=== PATIENT | female | born 1970 | race American Indian/Alaskan Native ===

== ENCOUNTER 2018-08-06 09:41 | Inpatient (IN) | payer MEDICAID ==
[2018-08-02 13:47] LABS: Basophils # (Auto) 0.1 K/mm3 (0.0-0.1); Basophils % (Auto) 1.2 % (0.0-1.8); Eosinophils # (Auto) 0.2 K/mm3 (0.0-0.4); Eosinophils % (Auto) 2.6 % (0.0-4.3); Hematocrit 38.3 % (30.3-42.9); Hemoglobin 12.8 gm/dl (10.1-14.3); Lymphocytes # (Auto) 3.9 K/mm3 (1.2-5.4); Lymphocytes % (Auto) 44.8 % (13.4-35.0); Mean Corpuscular HGB Conc 34 % (30-34); Mean Corpuscular Volume 95 fl (79-97); Monocytes # (Auto) 0.4 K/mm3 (0.0-0.8); Monocytes % (Auto) 4.8 % (0.0-7.3); Platelet Count 377 K/mm3 (140-440); Red Blood Count 4.05 M/mm3 (3.65-5.03); Red Cell Distribution Width 13.5 % (13.2-15.2)
[2018-08-02 13:57] LABS: INR 0.95 (0.87-1.13)
[2018-08-02 13:58] LABS: Partial Thromboplastin Time 26.5 Sec. (24.2-36.6)
[2018-08-02 14:04] LABS: Alanine Aminotransferase 20 units/L (7-56); Albumin 4.2 g/dL (3.9-5); BUN/Creatinine Ratio 17; Blood Urea Nitrogen 10 mg/dL (7-17); Calcium 9.4 mg/dL (8.4-10.2); Hemolysis Index 39
--- NOTE | 2018-08-02 16:11 | Anesthesia Consultation ---
Anesthesia Consult and Med Hx Date of service: 08/02/18 - Airway ROM Head & Neck: Adequate Mental/Hyoid Distance: Adequate Mallampati Class: Class III Intubation Access Assessment: Possibly Difficult - Pulmonary Exam CTA: Yes - Cardiac Exam Cardiac Exam: RRR - Pre-Operative Health Status ASA Pre-Surgery Classification: ASA3 Proposed Anesthetic Plan: General (SEVEN, COPD) Nerve Block: Adductor Canal - Pulmonary Hx Smoking: Yes (Former) Hx Asthma: Yes (Last neb beginnning 06/2018) COPD: Yes Hx Sleep Apnea: Yes - Cardiovascular System Hx Hypertension: Yes Hx Coronary Artery Disease: Yes Hx Peripheral Vascular Disease: Yes (Per pt) - Central Nervous System Hx Psychiatric Problems: Yes - Other Systems Hx Alcohol Use: Yes (Occas) Hx Cancer: No
[~2018-08-06 09:41] MED LIST: ANCEF/STERILE WATER 2 GM/20 ML IV NR
[2018-08-06] MEDS: NACL 0.9% 1000 ML 1,000 ML IV SCH (10:50)
[2018-08-06] MEDS ORDERED: NACL 0.9% 1000 ML 1,000 ML ONE (10:54)
[2018-08-06] MEDS ORDERED: ZOFRAN IV PRN ×2 (10:56→18:19)
--- NOTE | 2018-08-06 10:56 | Anesthesia Day of Surgery ---
Anesthesia Day of Surgery - Day of Surgery Patient Examined: Yes Patient H&P Reviewed: Yes Patient is NPO: Yes
[2018-08-06] MEDS ORDERED: LACTATED RINGERS 1,000 ML IV SCH (11:00)
[2018-08-06] MEDS ORDERED: NEURONTIN ONE (11:22)
[2018-08-06] MEDS ORDERED: SUBLIMAZE ONE ×2 (11:38→15:29)
[2018-08-06] MEDS ORDERED: XYLOCAINE 1% 20 mL ONE (11:39)
[2018-08-06] MEDS ORDERED: VERSED ONE (11:39)
[2018-08-06] MEDS ORDERED: TRANEXAMIC ACID ONE (12:00)
[2018-08-06] MEDS ORDERED: TORADOL ONE (12:00)
[2018-08-06] MEDS ORDERED: MARCAINE-EPI 0.5%-1:200,000 INFILTRATI ONE ×2 (12:00→17:45)
[2018-08-06] MEDS ORDERED: ANCEF/STERILE WATER 2 GM/20 ML IV NR (12:00)
[2018-08-06] MEDS ORDERED: NEURONTIN PO NR (12:00)
[2018-08-06] MEDS ORDERED: NACL 0.9% 100 ML ONE (12:01)
[2018-08-06] MEDS ORDERED: MORPHINE ONE ×2 (12:01→16:58)
[2018-08-06] MEDS ORDERED: NACL ONE (12:02)
[2018-08-06] MEDS ORDERED: DIPRIVAN 10 MG/ML IV ONE (15:29)
[2018-08-06] MEDS ORDERED: XYLOCAINE MPF 2% ONE (15:33)
[2018-08-06] MEDS ORDERED: QUELICIN ONE (15:56)
[2018-08-06] MEDS ORDERED: ZEMURON IV ONE (16:04)
[2018-08-06] MEDS ORDERED: DECADRON ONE (16:14)
[2018-08-06] MEDS ORDERED: ZOFRAN ONE (16:15)
[2018-08-06] MEDS ORDERED: DILAUDID ONE (17:02)
[2018-08-06] MEDS ORDERED: MORPHINE IM ONE (17:45)
[2018-08-06] MEDS ORDERED: TORADOL IV ONE (17:45)
[2018-08-06] MEDS ORDERED: NACL 0.9% IV ONE (17:45)
[2018-08-06] MEDS ORDERED: AMBIEN PO PRN (18:19)
[2018-08-06] MEDS ORDERED: IBUPROFEN PO PRN (18:19)
[2018-08-06] MEDS: DILAUDID IV PRN (18:25)
--- NOTE | 2018-08-06 18:34 | Procedure Note ---
Date of procedure: 08/06/18 Pre-op diagnosis: osteoarthritis right knee Post-op diagnosis: same Procedure: Right total knee arthroplasty Procedure The patient was brought to the or after the femoral nerve block and preoperative holding, he was placed in the or table in supine position following induction with Mac anesthesia the patient's right lower extremity was prepped and draped in the usual sterile manner. A timeout procedure was done to identify the patient and the correct operative site The leg was exsanguinated followed by insufflation of the pneumatic tourniquet to 300 mmHg. The midline incision was made centered over the patella this is taken down distally towards due to multiple medical incision was carried down sharply through skin and subcutaneous A sub-brow cyst approach was used after elevating the vastus off the distal femur. The knee was flexed to 90 following O's examination revealed typical where along the medial lateral compartments with peripheral osteophytes and bare bone in some places followinga large drill bit was used to enter the distal f emoral canal following this the distal femoral cutting was applied approximately 8-9 mm of bone was resected next the attention was turned to the proximal tibia using the external alignment again 8-9 mL of proximal tibia was resected care was taken to protect the medial and lateral collateral ligaments the cruciate ligaments were sacrificed longus sizing of the femoral component was performed a 4 femoral component was selected this was followed by application of the 4 in 1 cutting block care was taken to resect the anterior posterior as well as solution at this at this point in time the knee was sized A flexion and extension Of 10 mm was selected this was followed by application of the trial components the knee was then taken to or range of motion and was found to be stable following this fixation holes were applied to both the distal femur and proximal tibia care was taken to remove the medial lateral menisci as well as any excess bone and soft tissue debris the knee was then copiously irrigated using pulse lavage The bone cement was mixed the bone bleeding surfaces were wiped dry using sterile gauze for menisci tibial component was inserted using the cement technique the 11 mm polyethylene spacer was applied and secured this was followed by placement of the femoral component again excess cement was removed the knee was then held in flexion ostomy extension until the cement gandhi rdened following hardening of cement again a second look was performed and the residual soft tissue N cement debris were removed at this time the knee was then taken through a range of motion and was found to be stable next the Jaguar's incision was repaired using #1 Vicryl in interrupted [id number] suture pattern the subcutaneous and skin were closed in a routine manner. Dressings were applied the patient tolerated the procedure the retinal complications he was then taken to postanesthesia recovery Anesthesia: MAC, regional Surgeon: SUZANNA QUEVEDO (Maryana Peralta, 1st nutrition assistant) Estimated blood loss: 50-100ml Pathology: none Specimen disposition: discarded Condition: stable Disposition: PACU
[2018-08-06] MEDS ORDERED: SODIUM CHLORIDE FLUSH SYRINGE 10 ML IV SCH (19:00)
[2018-08-06] MEDS: ANCEF/NS 1 GM/50 ML 1 GM/50 ML BAG IV SCH (21:43)
[2018-08-06] MEDS: COLACE PO SCH (21:43)
[2018-08-06] MEDS: PERCOCET 5/325 PO PRN (21:44)
[2018-08-07] MEDS: ANCEF/NS 1 GM/50 ML 1 GM/50 ML BAG IV SCH (04:52)
[2018-08-07] MEDS: NACL 0.9% 1000 ML 1,000 ML IV SCH (04:52)
[2018-08-07] MEDS: PERCOCET 5/325 PO PRN ×2 (06:13→14:49)
[2018-08-07 07:24] LABS: Hematocrit 35.5 % (30.3-42.9); Hemoglobin 11.8 gm/dl (10.1-14.3)
[2018-08-07] MEDS: MORPHINE IV PRN ×3 (10:53→21:36)
[2018-08-07] MEDS: COLACE PO SCH ×2 (10:53→21:51)
[2018-08-07] MEDS: LOVENOX SUB-Q SCH (10:54)
[2018-08-07] MEDS: HABITROL TD SCH (12:07)
--- NOTE | 2018-08-07 12:28 | Consultation ---
History of Present Illness - Reason for Consult Consult date: 08/07/18 Medical management Requesting physician: SUZANNA QUEVEDO - History of Present Illness This is 48 y/o AAF with h/o CHF, HTN, HLD, COPD, anxiety and depression was admitted yesterday for elective Right knee arthoplasty. She had total Right knee arthoplasty yesterday, tolerated well. Hospitalist service consulted for medical Mx. patient denies any chest pain or SOB, but c/o cough, no fever. Endorses right knee pain. Review of System: Constitutional: no fever, no chills, no weight loss Ears, eyes, nose, mouth and throat: no nasal congestion, no nasal discharge, no sinus pressure, no vision change, no red eye. Neck: No neck pain or rigidity. Cardiovascular: No chest pain, no orthopnea, no palpitations, no leg swelling Respiratory: No shortness of breath, no cough, no congestion, no wheezing Gastrointestinal: no abdominal pain, no nausea, no vomiting Genitourinary : no dysuria, no hematuria Musculoskeletal: + Right knee joint pain Integumentary: no rash, no pruritis Neurological: no parathesias, no numbness, no tingling Endocrine: no cold or heat intolerance, no polyuria or polydipsia Hematologic/Lymphatic: no easy bruising, no easy bleeding, no gland swelling Allergic/Immunologic: no urticaria, no angioedema. Past History Past Medical History: GERD, heart failure, hypertension, hyperlipidemia, other (anxiety and depression) Past Surgical History: cataract removal, Other (tubal ligation b/l, lumpectomy from left breast) Social history: denies: smoking, alcohol abuse, IV drug use Family history: hypertension Medications and Allergies Allergies Allergy/AdvReac Type Severity Reaction Status Date / Time lisinopril Allergy Angioedema Verified 07/28/18 13:07 Home Medications Medication Instructions Recorded Confirmed Last Taken Type Gabapentin [Neurontin] 600 mg PO Q8H 06/27/18 08/06/18 08/05/18 09:00 History Loratadine 10 mg PO DAILY 06/27/18 08/06/18 08/05/18 09:00 History OLANZapine [Zyprexa Zydis] 15 mg PO QHS 06/27/18 08/06/18 08/05/18 21:00 History Potassium Chloride [Klor-Con M20] 20 meq PO DAILY 06/27/18 08/06/18 08/05/18 09:00 History AtorvaSTATin [Lipitor] 40 mg PO QHS #30 tablet 06/30/18 08/06/18 08/05/18 09:00 Rx Metoprolol Succinate [Toprol Xl] 25 mg PO BID #60 tab.er.24h 06/30/18 08/06/18 08/06/18 05:00 Rx Montelukast [Singulair] 10 mg PO QPM #30 tablet 06/30/18 08/06/18 08/05/18 09:00 Rx DULoxetine [Cymbalta] 60 mg PO DAILY 08/02/18 08/02/18 Unknown History Furosemide [Lasix] 60 mg PO DAILY 08/02/18 08/02/18 Unknown History hydrOXYzine pamoate [hydrOXYzine 100 mg PO DAILY PRN 08/02/18 08/06/18 08/05/18 09:00 History Pamoate] traMADol [Ultram] 50 mg PO Q12H PRN 08/02/18 08/06/18 08/04/18 09:00 History Lansoprazole [Heartburn Treatment 15 mg PO QDAY 08/07/18 08/07/18 Unknown History 24 Hour] Active Meds: Active Medications Docusate Sodium (Colace) 100 mg PO BID [facility] Last Admin: 08/07/18 10:53 Dose: 100 mg Documented by: Enoxaparin Sodium (Lovenox) 40 mg SUB-Q QDAY [facility] Last Admin: 08/07/18 10:54 Dose: 40 mg Documented by: Hydromorphone HCl (Dilaudid) 0.5 mg IV Q10MIN PRN PRN Reason: Pain , Severe (7-10) Last Admin: 08/06/18 18:25 Dose: 0.5 mg Documented by: Lactated Ringer's (Lactated Ringers) 1,000 mls @ 100 mls/hr IV DIRECT [facility] Sodium Chloride (Nacl 0.9% 1000 Ml) 1,000 mls @ 75 mls/hr IV DIRECT [facility] Last Admin: 08/07/18 04:52 Dose: 75 mls/hr Documented by: Ibuprofen (Motrin) 600 mg PO Q6H PRN PRN Reason: Pain, Mild (1-3) Morphine Sulfate (Morphine) 4 mg IV Q4H PRN PRN Reason: Pain , Severe (7-10) Last Admin: 08/07/18 10:53 Dose: 4 mg Documented by: Nicotine (Habitrol) 21 mg TD QDAY [facility] Last Admin: 08/07/18 12:07 Dose: 21 mg Documented by: Ondansetron HCl (Zofran) 4 mg IV ONCE PRN PRN Reason: Nausea And Vomiting Ondansetron HCl (Zofran) 4 mg IV Q8H PRN PRN Reason: Nausea And Vomiting Oxycodone/Acetaminophen (Percocet 5/325) 1 tab PO Q6H PRN PRN Reason: Pain, Moderate (4-6) Last Admin: 08/07/18 06:13 Dose: 1 tab Documented by: Sodium Chloride (Sodium Chloride Flush Syringe 10 Ml) 10 ml IV PRN [facility] Zolpidem Tartrate (Ambien) 5 mg PO QHS PRN PRN Reason: Sleep Last Admin: 08/07/18 00:35 Dose: 5 mg Documented by: Exam - Constitutional Vitals: Temp Pulse Resp BP Pulse Ox 98.0 F 67 16 128/77 100 08/07/18 07:31 08/07/18 07:31 08/07/18 11:23 08/07/18 07:31 08/07/18 07:31 General appearance: Present: no acute distress, obese - EENT Eyes: Present: PERRL ENT: hearing intact, clear oral mucosa - Neck Neck: Present: supple, normal ROM - Respiratory Respiratory effort: normal Respiratory: bilateral: CTA - Cardiovascular Heart Sounds: Present: S1 & S2. Absent: rub, click - Extremities Extremities: pulses symmetrical, No edema Peripheral Pulses: within normal limits - Abdominal General gastrointestinal: Present: soft, non-tender, non-distended, normal bowel sounds - Integumentary Integumentary: Present: clear, warm, dry - Musculoskeletal Musculoskeletal: other (right knee with dressing) - Psychiatric Psychiatric: appropriate mood/affect, intact judgment & insight - Neurologic Neurologic: CNII-XII intact, moves all extremities Results - Labs CBC & Chem 7: 08/07/18 06:15 08/02/18 13:40 Assessment and Plan s/p Right knee arthoplasty, POD #1 CHF, compensated, Ef unknown, likely systolic HTN/HLD Anxiety/depression Osteoarthritis GERD - cont post op care by ortho, PT/OT - will resume home meds, stiop iv fluid, pain Mx - dvt Px, thx for the consult - will follow along with you
--- NOTE | 2018-08-07 14:45 | XRay Report ---
FINAL REPORT PROCEDURE: XR KNEE 1-2V RT TECHNIQUE: Right knee, AP and lateral views HISTORY: post op evaluation COMPARISON: 07/07/2018 FINDINGS: There has been right knee arthroplasty. Hardware is in the expected position. No fracture of the vanessa ve bone or joint dislocation is seen. Soft tissue air is present. IMPRESSION: Status post right knee arthroplasty
[2018-08-07] MEDS ORDERED: ULTRAM PO PRN (15:20)
[2018-08-07] MEDS ORDERED: VISTARIL PO PRN (15:20)
[2018-08-07] MEDS ORDERED: NON-FORMULARY (Lansoprazole [Heartburn Treatment 24 Hour] 15 MG) PO SCH (15:30)
[2018-08-07] MEDS ORDERED: NON-FORMULARY (Gabapentin [Neurontin] 600 MG) PO SCH (15:30)
[2018-08-07] MEDS: SINGULAIR PO SCH (17:04)
[2018-08-07] MEDS: LASIX PO SCH (17:04)
[2018-08-07] MEDS: CYMBALTA PO SCH (17:04)
[2018-08-07] MEDS: CLARITIN PO SCH (17:04)
[2018-08-07] MEDS: NEURONTIN PO SCH (21:51)
[2018-08-07] MEDS: TOPROL XL PO SCH (21:52)
[2018-08-07] MEDS ORDERED: OLANZAPINE 15 MG PO SCH (22:00)
[2018-08-07] MEDS: PROTONIX PO SCH (22:46)
[2018-08-08] MEDS: MORPHINE IV PRN ×2 (04:46→21:34)
[2018-08-08] MEDS ORDERED: APRESOLINE IV PRN (05:41)
[2018-08-08] MEDS: NEURONTIN PO SCH ×3 (06:34→23:20)
[2018-08-08] MEDS: TOPROL XL PO SCH ×2 (09:58→23:25)
[2018-08-08] MEDS: COLACE PO SCH ×2 (09:58→23:20)
[2018-08-08] MEDS: CLARITIN PO SCH (10:00)
[2018-08-08] MEDS: K-DUR PO SCH (10:00)
[2018-08-08] MEDS: LASIX PO SCH (10:00)
[2018-08-08] MEDS ORDERED: PROTONIX PO SCH (10:00)
[2018-08-08] MEDS: PROTONIX PO SCH (10:00)
[2018-08-08] MEDS: LOVENOX SUB-Q SCH (10:01)
[2018-08-08] MEDS: CYMBALTA PO SCH (10:01)
[2018-08-08] MEDS: HABITROL TD SCH (10:01)
[2018-08-08] MEDS: PERCOCET 5/325 PO PRN ×2 (10:13→23:32)
--- NOTE | 2018-08-08 12:43 | Progress Note ---
Assessment and Plan Status post right total knee replacement Doing well Continue physical therapy and observation Subjective Date of service: 08/08/18 Interval history: No major complaints noted therapist in the room today Objective Vital signs: Vital Signs - 12hr 08/08/18 08/08/18 04:57 04:58 Temperature 99.7 F H Pulse Rate 91 H 91 H Respiratory 20 Rate Blood Pressure 170/96 O2 Sat by Pulse 98 98 Oximetry Narrative Exam: Post op dressings intact no drainage noted, good capillary refill, negative Martha's - Labs CBC & BMP: 08/07/18 06:15 08/02/18 13:40
--- NOTE | 2018-08-08 15:12 | Progress Note ---
Assessment and Plan Acute respiratory failure, could be from postop atelectasis, expected - CXR, nebs ordered, placed on supplemental O2 s/p Right knee arthoplasty, POD #1 CHF, compensated, Ef unknown, likely systolic HTN/HLD Anxiety/depression Osteoarthritis GERD - cont post op care by ortho, PT/OT, ambulate - Resumed home meds, off iv fluid, pain Mx, incentive spirometry, CXR, nebs - dvt Px, thx for the consult - will follow along with you Brief history: This is 48 y/o AAF with h/o CHF, HTN, HLD, COPD, anxiety and depression was admitted for elective Right knee arthoplasty. She had total Right knee arthoplasty done on 08/06/18, tolerated well. Hospitalist service consulted for medical Mx. Developed respiratory distress on 08/08/18, likely from postop atelectasis. Subjective Date of service: 08/08/18 Interval history: Pt seen and examined noted hypoxic this am, placed on N/c c/o cough Objective - Exam Narrative Exam: General appearance: Present: no acute distress, obese - EENT Eyes: Present: PERRL ENT: hearing intact, clear oral mucosa - Neck Neck: Present: supple, normal ROM - Respiratory Respiratory effort: normal Respiratory: bilateral: CTA - Cardiovascular Heart Sounds: Present: S1 & S2. Absent: rub, click - Extremities Extremities: pulses symmetrical, No edema Peripheral Pulses: within normal limits - Abdominal General gastrointestinal: Present: soft, non-tender, non-distended, normal bowel sounds - Integumentary Integumentary: Present: clear, warm, dry - Musculoskeletal Musculoskeletal: other (right knee with dressing) - Psychiatric Psychiatric: appropriate mood/affect, intact judgment & insight - Neurologic Neurologic: CNII-XII intact, moves all extremities - Constitutional Vitals: Vital Signs - 12hr 08/08/18 08/08/18 08/08/18 04:57 04:58 10:00 Temperature 99.7 F H Pulse Rate 91 H 91 H Respiratory 20 Rate Blood Pressure 170/96 O2 Sat by Pulse 98 98 98 Oximetry - Labs CBC & Chem 7: 08/07/18 06:15 08/02/18 13:40
--- NOTE | 2018-08-08 16:53 | XRay Report ---
FINAL REPORT EXAM: XR CHEST 1V AP HISTORY: SOB TECHNIQUE: Frontal chest radiograph. PRIORS: 06/27/2018. FINDINGS: The cardiomediastinal silhouette is normal. No focal consolidation. Linear opacities are seen in the lung bases. No pleural effusion. No pneumothorax. No acute osseous abnormality. IMPRESSION: Mild bibasilar atelectasis versus scarring.
[2018-08-08] MEDS: SINGULAIR PO SCH (19:05)
[2018-08-08] MEDS: DUONEB *Not for PRN Use IH SCH (20:31)
[2018-08-09] MEDS: DUONEB *Not for PRN Use IH SCH ×4 (02:18→20:26)
[2018-08-09] MEDS: NEURONTIN PO SCH ×3 (06:28→21:25)
[2018-08-09] MEDS: CYMBALTA PO SCH (09:30)
[2018-08-09] MEDS: LASIX PO SCH (09:31)
[2018-08-09] MEDS: K-DUR PO SCH (09:31)
[2018-08-09] MEDS: PROTONIX PO SCH (09:31)
[2018-08-09] MEDS: CLARITIN PO SCH (09:31)
[2018-08-09] MEDS: COLACE PO SCH ×2 (09:32→21:24)
[2018-08-09] MEDS: LOVENOX SUB-Q SCH (09:32)
[2018-08-09] MEDS: HABITROL TD SCH (09:32)
[2018-08-09] MEDS ORDERED: FLONASE NS ONE (14:31)
[2018-08-09] MEDS: MORPHINE IV PRN (14:31)
--- NOTE | 2018-08-09 14:31 | Progress Note ---
Assessment and Plan Acute respiratory failure, could be from postop atelectasis, expected - CXR, nebs ordered, placed on supplemental O2 s/p total Right knee replacement, POD #3 CHF, compensated, Ef unknown, likely systolic HTN/HLD Anxiety/depression Osteoarthritis GERD - cont post op care by ortho, PT/OT, ambulate - Resumed home meds, off iv fluid, pain Mx, incentive spirometry, CXR, nebs - dvt Px, thx for the consult - will follow along with you Brief history: This is 48 y/o AAF with h/o CHF, HTN, HLD, COPD, anxiety and depression was admitted for elective Right knee replacement. She had total Right knee replacement done on 08/06/18, tolerated well. Hospitalist service consulted for medical Mx. Developed respiratory distress on 08/08/18, likely from postop atelectasis, CXR no infiltrates. Subjective Date of service: 08/09/18 Interval history: Pt seen and examined c/o cough, ambulated with PT today Objective - Exam Narrative Exam: General appearance: Present: no acute distress, obese - EENT Eyes: Present: PERRL ENT: hearing intact, clear oral mucosa - Neck Neck: Present: supple, normal ROM - Respiratory Respiratory effort: normal Respiratory: bilateral: CTA - Cardiovascular Heart Sounds: Present: S1 & S2. Absent: rub, click - Extremities Extremities: pulses symmetrical, No edema Peripheral Pulses: within normal limits - Abdominal General gastrointestinal: Present: soft, non-tender, non-distended, normal bowel sounds - Integumentary Integumentary: Present: clear, warm, dry - Musculoskeletal Musculoskeletal: other (right knee with dressing) - Psychiatric Psychiatric: appropriate mood/affect, intact judgment & insight - Neurologic Neurologic: CNII-XII intact, moves all extremities - Constitutional Vitals: Vital Signs - 12hr 08/09/18 08/09/18 08/09/18 02:33 05:25 07:18 Temperature 97.9 F 98.1 F Pulse Rate 70 72 Pulse Rate [ 76 Anterior Bilateral Throughout] Pulse Rate [ Throughout] Respiratory 18 16 Rate Respiratory 18 Rate [Anterior Bilateral Throughout] Respiratory Rate [ Throughout] Blood Pressure 121/74 112/68 O2 Sat by Pulse 99 99 Oximetry 08/09/18 08/09/18 08/09/18 07:46 08:01 11:28 Temperature 98.6 F Pulse Rate 94 H Pulse Rate [ 78 Anterior Bilateral Throughout] Pulse Rate [ 79 Throughout] Respiratory 20 Rate Respiratory 16 Rate [Anterior Bilateral Throughout] Respiratory 16 Rate [ Throughout] Blood Pressure 122/70 O2 Sat by Pulse 99 98 Oximetry - Labs CBC & Chem 7: 08/07/18 06:15 08/02/18 13:40
[2018-08-09] MEDS: TOPROL XL PO SCH (18:09)
[2018-08-09] MEDS: FLONASE NS SCH (18:15)
[2018-08-09] MEDS: PERCOCET 5/325 PO PRN (20:38)
[2018-08-09] MEDS: SINGULAIR PO SCH (21:27)
--- NOTE | 2018-08-09 21:28 | Progress Note ---
Assessment and Plan Status post right total knee replacement Continue physical therapy and observation hopefully discharged home soon Subjective Date of service: 08/09/18 Interval history: No complaints doing better overall Objective Vital signs: Vital Signs - 12hr 08/09/18 08/09/18 08/09/18 11:28 15:07 18:09 Temperature 98.6 F 102.2 F H Pulse Rate 94 H 99 H Pulse Rate [ Anterior Bilateral Throughout] Respiratory 20 20 Rate Respiratory Rate [Anterior Bilateral Throughout] Blood Pressure 122/70 150/87 150/87 O2 Sat by Pulse 98 99 Oximetry 08/09/18 08/09/18 08/09/18 19:53 20:28 20:29 Temperature 100.8 F H Pulse Rate 99 H Pulse Rate [ 98 H Anterior Bilateral Throughout] Respiratory 20 Rate Respiratory 20 Rate [Anterior Bilateral Throughout] Blood Pressure 140/92 O2 Sat by Pulse 98 99 Oximetry 08/09/18 20:38 Temperature Pulse Rate Pulse Rate [ Anterior Bilateral Throughout] Respiratory 17 Rate Respiratory Rate [Anterior Bilateral Throughout] Blood Pressure O2 Sat by Pulse Oximetry Narrative Exam: Postoperative dressings removed wound inspected no sign of infection with minimal drainage and incision intact - Labs CBC & BMP: 08/07/18 06:15 08/02/18 13:40
[2018-08-09] MEDS ORDERED: PROVENTIL IH PRN (21:43)
[2018-08-10] MEDS: DILAUDID IV PRN (04:45)
[2018-08-10] MEDS: TYLENOL PO PRN (04:46)
[2018-08-10] MEDS: NEURONTIN PO SCH ×3 (06:42→21:20)
[2018-08-10] MEDS: CYMBALTA PO SCH (09:10)
[2018-08-10] MEDS: PROTONIX PO SCH (09:11)
[2018-08-10] MEDS: HABITROL TD SCH (09:11)
[2018-08-10] MEDS: K-DUR PO SCH (09:11)
[2018-08-10] MEDS: CLARITIN PO SCH (09:11)
[2018-08-10] MEDS: COLACE PO SCH ×2 (09:12→21:20)
[2018-08-10] MEDS: LASIX PO SCH (09:12)
[2018-08-10] MEDS: LOVENOX SUB-Q SCH (09:12)
[2018-08-10] MEDS: FLONASE NS SCH (09:12)
[2018-08-10] MEDS: DUONEB *Not for PRN Use IH SCH ×3 (09:18→21:42)
[2018-08-10] MEDS: TOPROL XL PO SCH ×3 (09:42→21:20)
--- NOTE | 2018-08-10 11:11 | Progress Note ---
Assessment and Plan Assessment and plan: This is 48 y/o AAF with h/o CHF, HTN, HLD, COPD, anxiety and depression was admitted for elective Right knee replacement. She had total Right knee replacement done on 08/06/18, tolerated well. Hospitalist service consulted for medical Mx. Developed respiratory distress on 08/08/18, likely from postop atelectasis, CXR no infiltrates. --Acute respiratory failure, could be from postop atelectasis, expected CXR, nebs ordered, placed on supplemental O2 --s/p total Right knee replacement, POD #3 Continue postop care, physical therapy and occupational therapy Possible home PT upon discharge --CHF, compensated, Ef unknown, likely systolic Continue current management --HTN/HLD; stable --Anxiety/depression; continue current management --Osteoarthritis; supportive care --GERD; Protonix --DVT prophylaxis; Lovenox Discharge plan and case management Plan of care is reviewed with the patient and her nurse History Interval history: Patient seen and examined medical records reviewed Slightly better tolerating physical therapy Mild pain in the knee, Vital signs reviewed Hospitalist Physical - Constitutional Vitals: Temp Pulse Resp BP Pulse Ox 99.4 F 91 H 20 122/73 97 08/10/18 07:00 08/10/18 09:35 08/10/18 09:35 08/10/18 07:00 08/10/18 09:19 General appearance: Present: no acute distress, well-nourished, obese - EENT Eyes: Present: PERRL, EOM intact - Neck Neck: Present: supple, normal ROM - Respiratory Respiratory effort: normal Respiratory: bilateral: diminished, negative: rales, rhonchi, wheezing - Cardiovascular Rhythm: regular Heart Sounds: Present: S1 & S2 - Extremities Extremities: no ischemia, No edema, abnormal (postsurgical changes) - Abdominal General gastrointestinal: soft, non-tender, non-distended, normal bowel sounds - Integumentary Integumentary: Present: clear, warm - Psychiatric Psychiatric: appropriate mood/affect, cooperative - Neurologic Neurologic: CNII-XII intact, moves all extremities Results - Labs CBC & Chem 7: 08/07/18 06:15 08/02/18 13:40 Labs: Laboratory Last Values WBC 8.7 K/mm3 (4.5-11.0) 08/02/18 13:40 RBC 4.05 M/mm3 (3.65-5.03) 08/02/18 13:40 Hgb 11.8 gm/dl (10.1-14.3) 08/07/18 06:15 Hct 35.5 % (30.3-42.9) 08/07/18 06:15 MCV 95 fl (79-97) 08/02/18 13:40 MCH 32 pg (28-32) 08/02/18 13:40 MCHC 34 % (30-34) 08/02/18 13:40 RDW 13.5 % (13.2-15.2) 08/02/18 13:40 Plt Count 377 K/mm3 (140-440) 08/02/18 13:40 Lymph % (Auto) 44.8 % (13.4-35.0) H 08/02/18 13:40 [place] % (Auto) 4.8 % (0.0-7.3) 08/02/18 13:40 Eos % (Auto) 2.6 % (0.0-4.3) 08/02/18 13:40 Baso % (Auto) 1.2 % (0.0-1.8) 08/02/18 13:40 Lymph # 3.9 K/mm3 (1.2-5.4) 08/02/18 13:40 [place] # 0.4 K/mm3 (0.0-0.8) 08/02/18 13:40 Eos # 0.2 K/mm3 (0.0-0.4) 08/02/18 13:40 Baso # 0.1 K/mm3 (0.0-0.1) 08/02/18 13:40 Seg Neutrophils % 46.6 % (40.0-70.0) 08/02/18 13:40 Seg Neutrophils # 4.1 K/mm3 (1.8-7.7) 08/02/18 13:40 PT 13.1 Sec. (12.2-14.9) 08/02/18 13:40 INR 0.95 (0.87-1.13) 08/02/18 13:40 APTT 26.5 Sec. (24.2-36.6) 08/02/18 13:40 Sodium 140 mmol/L (137-145) 08/02/18 13:40 Potassium 3.7 mmol/L (3.6-5.0) 08/02/18 13:40 Chloride 105.8 mmol/L (98-107) 08/02/18 13:40 Carbon Dioxide 23 mmol/L (22-30) 08/02/18 13:40 Anion Gap 15 mmol/L 08/02/18 13:40 BUN 10 mg/dL (7-17) 08/02/18 13:40 Creatinine 0.6 mg/dL (0.7-1.2) L 08/02/18 13:40 Estimated GFR > 60 ml/min 08/02/18 13:40 BUN/Creatinine Ratio 17 % 08/02/18 13:40 Glucose 154 mg/dL (65-100) H 08/02/18 13:40 POC Glucose 131 (70-105) H 08/06/18 10:42 Calcium 9.4 mg/dL (8.4-10.2) 08/02/18 13:40 Total Bilirubin 0.40 mg/dL (0.1-1.2) 08/02/18 13:40 AST 26 units/L (5-40) 08/02/18 13:40 ALT 20 units/L (7-56) 08/02/18 13:40 Alkaline Phosphatase 67 units/L (35-129) 08/02/18 13:40 Total Protein 7.2 g/dL (6.3-8.2) 08/02/18 13:40 Albumin 4.2 g/dL (3.9-5) 08/02/18 13:40 Albumin/Globulin Ratio 1.4 % 08/02/18 13:40 Blood Type A POSITIVE 08/06/18 10:35 Antibody Screen Negative 08/06/18 10:35
[2018-08-10] MEDS: MORPHINE IV PRN (12:36)
[2018-08-10] MEDS: SINGULAIR PO SCH (17:47)
[2018-08-10] MEDS: PERCOCET 5/325 PO PRN (17:47)
[2018-08-11] MEDS: TYLENOL PO PRN (03:39)
[2018-08-11] MEDS: PERCOCET 5/325 PO PRN (03:40)
[2018-08-11 07:59] VITALS: BP 112/69
--- NOTE | 2018-08-11 08:21 | Discharge Summary ---
Providers - Providers Date of Admission: 08/06/18 18:16 Date of discharge: 08/11/18 Attending physician: SUZANNA QUEVEDO MD 08/06/18 18:19 Consult to Case Management [CONS] Routine Services Needed at Discharge: Home Health Services Physical Therapy Notified:: CAR RECORD CLERK 08/06/18 18:23 Physical Therapy Evaluation and Treat [CONS] Routine Comment: Reason For Exam: postoperative evaluation Weight bearing status?: Full wt bearing Assistive devices?: Yes If so list: Walker 08/07/18 09:27 Consult to Physician [CONS] Routine Comment: Spoke with dr KOENIG @09:31 Consulting Provider: DAX KOENIG Physician Instructions: Reason For Exam: medical management Primary care physician: ISAIAS DE JESUS NP Hospitalization Reason for admission: severe right knee pain Condition: Stable Pertinent studies: plain xrays right knee Procedures: Right total knee replacement Hospital course: 48 y/o female with c/o right knee pain and swelling for years, no history of injury or infection, plain xrays taken pre op showed findings consistent with severe osteoarthritis right knee. Admitted to the hospital and taken to the OR where right TKR done without complications. Post op seen and evaluated by internal medicine service for other associated medial problems related to hx of COPD...Case management consulted for home health services... Disposition: DC/- HOME UNDER HOME HLTH - Discharge Diagnoses (1) Primary osteoarthritis of right knee Status: Acute Core Measure Documentation - Palliative Care Palliative Care/ Comfort Measures: Not Applicable - Core Measures Any of the following diagnoses?: none - VTE Discharge Requirements Deep Vein Thrombosis/Pulmonary Embolism Present on Admission: No Has pt received <5 days of overlap therapy or INR<2.0: No Anticoagulant overlap therapy prescribed at discharge: Yes Contraindication No Overlap Therapy order at DC: Medical Contraindication - Acute CA Discharge Requirements Aspirin at discharge: No Reason for no aspirin on DC: Medical contraindication JESSICA/ARB for LVSD if EF <40%: Not Applicable Reason for no JESSICA/ARB: Medical contraindication Beta mireya at discharge: No Reason for no beta mireya on DC: Medical contraindication Statin for LDL = or >100 mg/dl on DC: Not Applicable - Heart Failure Discharge Requirements JESSICA/ARB for LVSD if EF <40%: No Reason for no JESSICA/ARB: Medical contraindication Beta mireya at discharge: No Reason for no beta mireya on DC: Medical contraindication - Stroke Discharge Requirements Statin for LDL = or >70 mg/dl on DC: No Reason for no statin on DC: Medical Contraindication Exam - Physical Exam Narrative exam: Postoperative dressings removed wound inspected no sign of infection with minimal drainage and incision intact - Constitutional Vitals: Temp Pulse Resp BP Pulse Ox 98.8 F 82 18 112/69 100 08/11/18 07:44 08/11/18 07:44 08/11/18 07:44 08/11/18 07:44 08/11/18 07:44 General appearance: Present: no acute distress, well-nourished - EENT Eyes: Present: PERRL ENT: hearing intact, clear oral mucosa - Neck Neck: Present: supple, normal ROM - Respiratory Respiratory effort: normal Respiratory: bilateral: CTA - Cardiovascular Heart Sounds: Present: S1 & S2. Absent: rub, click - Extremities Extremities: pulses symmetrical, No edema Peripheral Pulses: within normal limits - Abdominal General gastrointestinal: Present: soft, non-tender, non-distended, normal bowel sounds Female genitourinary: Present: normal - Integumentary Integumentary: Present: clear, warm, dry - Musculoskeletal Musculoskeletal: gait normal, strength equal bilaterally - Psychiatric Psychiatric: appropriate mood/affect, intact judgment & insight - Neurologic Neurologic: CNII-XII intact, moves all extremities Plan Activity: advance as tolerated Weight Bearing Status: Weight Bear as Tolerated Diet: regular Wound: keep clean and dry Special Instructions: physical therapy Durable Medical Equipment Needed Upon Discharge: Walker-Standard Follow up with: ISAIAS DE JESUS NP [Primary Care Provider] - 7 Days Prescriptions: oxyCODONE [roxiCODONE] 5 mg PO Q6HR PRN #40 tablet PRN Reason: Pain
[2018-08-11] MEDS: COLACE PO SCH (09:20)
[2018-08-11] MEDS: CYMBALTA PO SCH (09:20)
[2018-08-11] MEDS: CLARITIN PO SCH (09:20)
[2018-08-11] MEDS: K-DUR PO SCH (09:20)
[2018-08-11] MEDS: LASIX PO SCH (09:20)
[2018-08-11] MEDS: HABITROL TD SCH (09:20)
[2018-08-11] MEDS: PROTONIX PO SCH (09:20)
[2018-08-11] MEDS: FLONASE NS SCH (09:21)
[2018-08-11] MEDS: LOVENOX SUB-Q SCH (09:22)
[2018-08-11] MEDS: TOPROL XL PO SCH (09:22)
--- NOTE | 2018-08-11 17:37 | Progress Note ---
Assessment and Plan Assessment and plan: This is 48 y/o AAF with h/o CHF, HTN, HLD, COPD, anxiety and depression was admitted for elective Right knee replacement. She had total Right knee replacement done on 08/06/18, tolerated well. Hospitalist service consulted for medical Mx. Developed respiratory distress on 08/08/18, likely from postop atelectasis, CXR no infiltrates. --Acute respiratory failure, could be from postop atelectasis, expected CXR, nebs ordered, placed on supplemental O2 --s/p total Right knee replacement, Continue postop care, physical therapy and occupational therapy Possible home PT upon discharge --CHF, compensated, Ef unknown, likely systolic Continue current management --HTN/HLD; stable --Anxiety/depression; continue current management --Osteoarthritis; supportive care --GERD; Protonix --DVT prophylaxis; Lovenox Patient is medically stable for discharge Patient needs to Follow-up with primary care physician for her medical needs History Interval history: Patient seen and examined medical records review Patient feels better no new complaints Tolerating physical therapy Orthopedic cleared for discharge Vital signs reviewed Hospitalist Physical - Constitutional Vitals: Temp Pulse Resp BP Pulse Ox 98.8 F 82 18 112/69 100 08/11/18 07:44 08/11/18 07:44 08/11/18 07:44 08/11/18 07:44 08/11/18 07:44 General appearance: Present: no acute distress, well-nourished - EENT Eyes: Present: PERRL, EOM intact - Neck Neck: Present: supple, normal ROM - Respiratory Respiratory effort: normal Respiratory: negative: rales, rhonchi, wheezing - Cardiovascular Rhythm: regular Heart Sounds: Present: S1 & S2 - Extremities Extremities: no ischemia, No edema, abnormal (postop changes) - Abdominal General gastrointestinal: soft, non-tender, non-distended, normal bowel sounds - Integumentary Integumentary: Present: clear, warm - Psychiatric Psychiatric: appropriate mood/affect, cooperative - Neurologic Neurologic: moves all extremities Results - Labs CBC & Chem 7: 08/07/18 06:15 08/02/18 13:40 Labs: Laboratory Last Values WBC 8.7 K/mm3 (4.5-11.0) 08/02/18 13:40 RBC 4.05 M/mm3 (3.65-5.03) 08/02/18 13:40 Hgb 11.8 gm/dl (10.1-14.3) 08/07/18 06:15 Hct 35.5 % (30.3-42.9) 08/07/18 06:15 MCV 95 fl (79-97) 08/02/18 13:40 MCH 32 pg (28-32) 08/02/18 13:40 MCHC 34 % (30-34) 08/02/18 13:40 RDW 13.5 % (13.2-15.2) 08/02/18 13:40 Plt Count 377 K/mm3 (140-440) 08/02/18 13:40 Lymph % (Auto) 44.8 % (13.4-35.0) H 08/02/18 13:40 Sharp % (Auto) 4.8 % (0.0-7.3) 08/02/18 13:40 Eos % (Auto) 2.6 % (0.0-4.3) 08/02/18 13:40 Baso % (Auto) 1.2 % (0.0-1.8) 08/02/18 13:40 Lymph # 3.9 K/mm3 (1.2-5.4) 08/02/18 13:40 Sharp # 0.4 K/mm3 (0.0-0.8) 08/02/18 13:40 Eos # 0.2 K/mm3 (0.0-0.4) 08/02/18 13:40 Baso # 0.1 K/mm3 (0.0-0.1) 08/02/18 13:40 Seg Neutrophils % 46.6 % (40.0-70.0) 08/02/18 13:40 Seg Neutrophils # 4.1 K/mm3 (1.8-7.7) 08/02/18 13:40 PT 13.1 Sec. (12.2-14.9) 08/02/18 13:40 INR 0.95 (0.87-1.13) 08/02/18 13:40 APTT 26.5 Sec. (24.2-36.6) 08/02/18 13:40 Sodium 140 mmol/L (137-145) 08/02/18 13:40 Potassium 3.7 mmol/L (3.6-5.0) 08/02/18 13:40 Chloride 105.8 mmol/L (98-107) 08/02/18 13:40 Carbon Dioxide 23 mmol/L (22-30) 08/02/18 13:40 Anion Gap 15 mmol/L 08/02/18 13:40 BUN 10 mg/dL (7-17) 08/02/18 13:40 Creatinine 0.6 mg/dL (0.7-1.2) L 08/02/18 13:40 Estimated GFR > 60 ml/min 08/02/18 13:40 BUN/Creatinine Ratio 17 % 08/02/18 13:40 Glucose 154 mg/dL (65-100) H 08/02/18 13:40 POC Glucose 131 (70-105) H 08/06/18 10:42 Calcium 9.4 mg/dL (8.4-10.2) 08/02/18 13:40 Total Bilirubin 0.40 mg/dL (0.1-1.2) 08/02/18 13:40 AST 26 units/L (5-40) 08/02/18 13:40 ALT 20 units/L (7-56) 08/02/18 13:40 Alkaline Phosphatase 67 units/L (35-129) 08/02/18 13:40 Total Protein 7.2 g/dL (6.3-8.2) 08/02/18 13:40 Albumin 4.2 g/dL (3.9-5) 08/02/18 13:40 Albumin/Globulin Ratio 1.4 % 08/02/18 13:40 Blood Type A POSITIVE 08/06/18 10:35 Antibody Screen Negative 08/06/18 10:35
== END 2018-08-11 09:59 | disposition home health service (06) | DRG 469 ==
LOC: OR 09:41 → EDSTATUS 11:30 → 3B-SURG 18:16
PROVIDERS: ADMIT Orthopaedic Surgery; ATTEND Orthopaedic Surgery
PROC: 0SRC0J9 Replacement of Right Knee Joint with Synthetic Substitute, Cemented, Open Approach (ICD-10-PCS; principal; 2018-08-06)
PROC: 5A09357 Assistance with Respiratory Ventilation, Less than 24 Consecutive Hours, Continuous Positive Airway Pressure (ICD-10-PCS; 2018-08-08)
DX: M17.11 Unilateral primary osteoarthritis, right knee (principal); J96.00 Acute respiratory failure, unspecified whether with hypoxia or hypercapnia; I11.0 Hypertensive heart disease with heart failure; J44.9 Chronic obstructive pulmonary disease, unspecified; F41.9 Anxiety disorder, unspecified; E78.5 Hyperlipidemia, unspecified; F32.9 Major depressive disorder, single episode, unspecified; I25.10 Atherosclerotic heart disease of native coronary artery without angina pectoris; G47.30 Sleep apnea, unspecified; I50.9 Heart failure, unspecified; F17.210 Nicotine dependence, cigarettes, uncomplicated; K21.9 Gastro-esophageal reflux disease without esophagitis; Z98.49 Cataract extraction status, unspecified eye; Z98.51 Tubal ligation status; Z82.49 Family history of ischemic heart disease and other diseases of the circulatory system; Z88.6 Allergy status to analgesic agent; Z71.6 Tobacco abuse counseling; Z79.899 Other long term (current) drug therapy; J98.11 Atelectasis
CPT/HCPCS: 36415; 64450; 71045; 80053; 82962; 85014; 85018; 85025; 85610; 85730; 86850; 86900; 86901; 94640; 94760; 99406; G0378; A9270-GY; C1713; C1776; J0330; J0690; J1100; J1170; J1650; J1885; J2250; J2270; J2405; J2704; J3010; J7030

== ENCOUNTER 2019-02-16 15:18 | Outpatient (CLI) | payer MEDICAID ==
--- NOTE | 2019-02-16 16:38 | XRay Report ---
Right knee 2 views Indication: Unilateral primary osteoarthritis of the right knee. Findings: Right total knee arthroplasty has been performed with satisfactory postoperative radiograph appearanc e. No fracture or subluxation. Signer Name: Remy Benoit MD Signed: 02/16/2019 4:34 PM Workstation Name: [id number]
--- NOTE | 2019-02-16 16:42 | XRay Report ---
RIGHT ANKLE 3 VIEW(S) INDICATION / CLINICAL INFORMATION: M25.571 PAIN IN RIGHT ANKLE JOINT OF RIGHT FOOT COMPARISON: None available. FINDINGS: BONES / JOINT(S): No acute fracture or subluxation. No significant arthritis. SOFT TISSUES: Mild lateral soft tissue swelling. ADDITIONAL FINDINGS: None. Signer Name: Christopher Crews MD Signed: 02/16/2019 4:37 PM Workstation Name: [id number]
== END 2019-02-16 15:19 | disposition home or self-care (01) ==
LOC: XRAY 15:18
PROVIDERS: ATTEND Orthopaedic Surgery
DX: M25.471 Effusion, right ankle (principal); M17.11 Unilateral primary osteoarthritis, right knee; I11.0 Hypertensive heart disease with heart failure; I50.9 Heart failure, unspecified; E78.00 Pure hypercholesterolemia, unspecified; J44.9 Chronic obstructive pulmonary disease, unspecified; K21.9 Gastro-esophageal reflux disease without esophagitis